=== PATIENT | female | born 1965 | race Caucasian/White ===

== ENCOUNTER 2016-10-04 13:04 | Emergency (ER) | payer OTHER ==
[2016-10-04] MEDS ORDERED: HYDROcodone/APAP 5-325MG 1 EACH TAB PO STA (14:40)
--- NOTE | 2016-10-04 14:54 | ED ---
General Adult HPI - General Chief complaint: Extremity Injury, Upper Stated complaint: Arm swollen Time Seen by Provider: 10/04/16 14:13 Source: patient, RN notes reviewed, old records reviewed Mode of arrival: ambulatory Limitations: no limitations - History of Present Illness Initial comments: Chief complaint history of present illness a 42-year-old female who for the past 7 months been having burning and pain to her right forearm. Patient reports while on the job 7 months ago to her hand and forearm to bang up on a shelf on the job developed acute pain in the right elbow area. She is been following with the orthopod since that time she's had MRIs etc. The patient is on ibuprofen and Mobitz. She returned to work recently and stated that the burning and pain has persisted. She hasn't on-again off-again at home and/or at work. Patient states that she is taking 800 mg 6 times a day. The risk of that plus the moment causing gastritis ulcers and perforation strongly cautioned. Patient has a follow-up appointment in several weeks. In the meanwhile the patient will be given a prescription to get an EMG study . She' ll be placed on [place] to be taken for breakthrough pain and did not take is much ibuprofen as she's been taking. - Related Data Home Medications Medication Instructions Recorded Confirmed Gabapentin [Neurontin] 100 mg PO BID 10/04/16 10/04/16 Ibuprofen [Ibuprofen] 800 mg PO TID PRN 10/04/16 10/04/16 Meloxicam [Meloxicam] 15 mg PO DAILY 10/04/16 10/04/16 buPROPion SR [Wellbutrin SR] 150 mg PO BID 10/04/16 10/04/16 metFORMIN HCL [Metformin HCl] 500 mg PO DAILY 10/04/16 10/04/16 Previous Rx's Medication Instructions Recorded Hydrocodone/Acetaminophen [[place] 1 each PO Q6HR PRN #20 tab 10/04/16 5-325] Allergies Allergy/AdvReac Type Severity Reaction Status Date / Time No Known Allergies Allergy Verified 10/04/16 14:10 Review of Systems ROS Statement: Those systems with pertinent positive or pertinent negative responses have been documented in the HPI. Review of systems no headache or visual acuity changes denies any chest pain shows breath GI/ problems no neuro deficits are burning pain to her right forearm down to her hand. She is in a sling chronically for the past multiple months as well as a pressure gloves includes the fingers up to the midforearm. She states that she has pain and burning regardless whether she is at home or at work. More time during the day is in pain and then not. But it does stop sometimes. Nothing triggers the pain to get worse. All systems reviewed. Past medical problems cervical cancer, asthma, diabetes mellitus treated with by mouth medications. Surgeries include , cholecystectomy. Family history not respiratory. Patient has no known ALLERGIES. She does smoke strongly encouraged to stop denies alcohol use. ROS Other: All systems not noted in ROS Statement are negative. Past Medical History Past Medical History: Asthma, Cancer, Diabetes Mellitus Additional Past Medical History / Comment(s): cervical cancer 20 years ago History of Any Multi-Drug Resistant Organisms: None Reported Past Surgical History: Section, Cholecystectomy Past Anesthesia/Blood Transfusion Reactions: No Reported Reaction Past Psychological History: No Psychological Hx Reported Smoking Status: Current every day smoker Past Alcohol Use History: None Reported Past Drug Use History: None Reported - Past Family History Father Family Medical History: Cancer Additional Family Medical History / Comment(s): prostate General Exam - General Exam Comments Initial Comments: General: The patient is awake and alert, complaining of on again off again burning sensation and pain throbbing type right forearm on again off again for several months. Patient had leave work because of the discomfort. Vital signs shows temperature 98.3 pulse 88 respiratory rate 18 pulse ox 90% room air blood pressure 150/75 Eye: Pupils are equal, round and reactive to light, extra-ocular movements are intact ; there is normal conjunctiva bilaterally. No signs of icterus. Ears, nose, mouth and throat: There are moist mucous membranes Neck: The neck is supple, there is no tenderness , denies neck pain. Cardiovascular: There is a regular rate and rhythm. No murmur, rub or gallop is appreciated. Respiratory: Lungs are clear to auscultation, respirations are non-labored, breath sounds are equal. No wheezes, stridor, rales, or rhonchi. Gastrointestinal: Soft, non-distended, non-tender abdomen without masses or organomegaly noted. There is no rebound or guarding present. No CVA tenderness. Bowel sounds are unremarkable. Back: There is no tenderness to palpation in the midline. There is no obvious deformity. Musculoskeletal: Patient has a right arm and a sling. Also a glove at was pressure on her hand and wrist area. She complains of a burning sensation in the area just distal to the right elbow. Able to open close her fingers touch her fingertips to her thumb tip. . Pulses at palpable radial. Neurological: Patient complains of burning throbbing pain ongoing for multiple months right forearm. Patient is being followed by the orthopod. Today she has not had an EMG study this be requested. Skin: No rash noted. Limitations: no limitations Course Vital Signs 10/04/16 14:05 Temperature 98.3 F Pulse Rate 88 Respiratory 18 Rate Blood Pressure 150/75 O2 Sat by Pulse 98 Oximetry Medical Decision Making - Medical Decision Making Medical decision making at this time the patient is requesting that she not to go to work but she does not want take pain medication on the job. She'll be given Conestoga that she can take over the next several days. Told to decrease the frequency of her ibuprofen and she does take it she should take it with food. Follow-up with orthopedic surgeon and her family doctor. She will also be given a prescription follow-up with on-call neurologist Dr. Juno Chowdary. With an EMG study ordered. Disposition Clinical Impression: Neuropathic pain of right forearm Disposition: HOME SELF-CARE Condition: Stable Instructions: Paresthesia (ED), Arm Pain (ED) Additional Instructions: Take Conestoga as directed. Decreased frequency of urine or ibuprofen to only 3 times daily. Take with food. Prescriptions: Hydrocodone/Acetaminophen [Conestoga 5-325] 1 each PO Q6HR PRN #20 tab PRN Reason: Pain Referrals: Malachi Larios MD [Primary Care Provider] - 1-2 days Time of Disposition: 14:54
[2016-10-04 15:11] VITALS: BP 156/76; PULSE 66; RESP 16; TEMP 98
== END 2016-10-04 15:20 | disposition home or self-care (01) ==
LOC: EC 13:04
DX: M79.2 Neuralgia and neuritis, unspecified (principal); M79.631 Pain in right forearm; M25.521 Pain in right elbow; E11.9 Type 2 diabetes mellitus without complications; F17.200 Nicotine dependence, unspecified, uncomplicated; Z79.899 Other long term (current) drug therapy; Z79.84 Long term (current) use of oral hypoglycemic drugs; Z85.41 Personal history of malignant neoplasm of cervix uteri
CPT/HCPCS: 99283

== ENCOUNTER → 2016-12-04 | Outpatient (CLI) | payer OTHER ==
[2016-12-04 13:55] VITALS: BP 154/86; PULSE 87; RESP 16; TEMP 98.5; BMI 51.1
[2016-12-04 14:18] LABS: EKG EKG PERFORMED
[2016-12-04 14:55] LABS: CHCM 32.7; HDW 2.54; MCH 28.6 pg (25.0-35.0); MCHC 33.3 g/dL (31.0-37.0); MCV 85.7 fL (80.0-100.0); Mean Platelet Volume 8.6; RBC 5.25 m/uL (3.80-5.40); RDW 13.8 % (11.5-15.5); WBC 12.6 k/uL (3.8-10.6)
[2016-12-04 15:10] LABS: ALT 35 U/L (9-52); AST 28 U/L (14-36); Alkaline Phosphatase 95 U/L (38-126); Anion Gap 11 mmol/L; Blood Urea Nitrogen 13 mg/dL (7-17); Calcium 9.3 mg/dL (8.4-10.2); Carbon Dioxide 26 mmol/L (22-30); Chloride 103 mmol/L (98-107); Glucose 221 mg/dL (74-99); Non-African American GFR(MDRD) >60 (>60 ml/min/1.73 sqM); Potassium 4.5 mmol/L (3.5-5.1); Sodium 140 mmol/L (137-145); Total Bilirubin 0.5 mg/dL (0.2-1.3); Total Protein 6.8 g/dL (6.3-8.2)
[2016-12-04 15:58] LABS: Vitamin B12 293 pg/mL (239-931)
--- NOTE | 2016-12-04 16:45 | P.HPBAR ---
Bariatric H&P - History & Physicial H&P Date: 12/04/16 History & Physicial: Visit/CC: sleeve consult Patient initial contact: Initial weight: 136.305 kg Initial weight in pounds: 300.50 Height: 5 ft 4.25 in Initial BMI: 51.1 Last weight: Current weight: 136.305 kg Current weight in pounds: 300.50 Current BMI: 51.1 [place] body weight (based on NIH guidelines): 54.998 kg Excess body weight loss: 0.0% The patient is a 51 year-old F who presents for Bariatric Assessment. The patient presents today for sleeve gastric the consultation. She's had lifetime problems obesity. Past Medical History Past Medical History: Asthma, Cancer, Diabetes Mellitus, Osteoarthritis (OA) Additional Past Medical History / Comment(s): cervical cancer 1993 History of Any Multi-Drug Resistant Organisms: None Reported Past Surgical History: Section, Cholecystectomy Past Anesthesia/Blood Transfusion Reactions: No Reported Reaction Past Psychological History: No Psychological Hx Reported Smoking Status: Current every day smoker Past Alcohol Use History: None Reported Past Drug Use History: None Reported - Past Family History Father Family Medical History: Cancer Additional Family Medical History / Comment(s): prostate Surgical - Exam Vital Signs Temp Pulse Resp BP 98.5 F 87 16 154/86 12/04/16 13:34 12/04/16 13:34 12/04/16 13:34 12/04/16 13:34 - General well developed, no distress - Eyes PERRL - Abdomen Abdomen: soft, non tender Results - Labs 12/04/16 14:12 12/04/16 14:12 Abnormal Lab Results - Last 24 Hours (Table) 12/04/16 12/04/16 Range/Units 14:12 14:12 WBC 12.6 H (3.8-10.6) k/uL Glucose 221 H (74-99) mg/dL Diabetes panel 12/04/16 Range/Units 14:12 Sodium 140 (137-145) mmol/L Potassium 4.5 (3.5-5.1) mmol/L Chloride 103 (98-107) mmol/L Carbon Dioxide 26 (22-30) mmol/L BUN 13 (7-17) mg/dL Creatinine 0.60 (0.52-1.04) mg/dL Glucose 221 H (74-99) mg/dL Calcium 9.3 (8.4-10.2) mg/dL AST 28 (14-36) U/L ALT 35 (9-52) U/L Alkaline Phosphatase 95 (38-126) U/L Total Protein 6.8 (6.3-8.2) g/dL Albumin 3.9 (3.5-5.0) g/dL Calcium panel 12/04/16 Range/Units 14:12 Calcium 9.3 (8.4-10.2) mg/dL Albumin 3.9 (3.5-5.0) g/dL Pituitary panel 12/04/16 Range/Units 14:12 Sodium 140 (137-145) mmol/L Potassium 4.5 (3.5-5.1) mmol/L Chloride 103 (98-107) mmol/L Carbon Dioxide 26 (22-30) mmol/L BUN 13 (7-17) mg/dL Creatinine 0.60 (0.52-1.04) mg/dL Glucose 221 H (74-99) mg/dL Calcium 9.3 (8.4-10.2) mg/dL Adrenal panel 12/04/16 Range/Units 14:12 Sodium 140 (137-145) mmol/L Potassium 4.5 (3.5-5.1) mmol/L Chloride 103 (98-107) mmol/L Carbon Dioxide 26 (22-30) mmol/L BUN 13 (7-17) mg/dL Creatinine 0.60 (0.52-1.04) mg/dL Glucose 221 H (74-99) mg/dL Calcium 9.3 (8.4-10.2) mg/dL Total Bilirubin 0.5 (0.2-1.3) mg/dL AST 28 (14-36) U/L ALT 35 (9-52) U/L Alkaline Phosphatase 95 (38-126) U/L Total Protein 6.8 (6.3-8.2) g/dL Albumin 3.9 (3.5-5.0) g/dL Bariatric Assessment & Plan Plan: RBC. Patient's BMI is 51. She will obtain insurance authorization. We went over the risks and benefits of sleeve gastrectomy discussed with the risk of gastric staple line disruption. Patient will follow-up in one month. Bariatric Checklist Checklist: Plan: Checklist: EGD: 1. Hiatal hernia: 2. H. Pylori: HgbA1c: Vitamin D: Smoking: Current every day smoker Primary care physician referral: Malachi tyson Psychiatry clearance: Cardiology clearance: Sleep study: Diet journal: VTE risk score: VTE risk level: Rehab needs at discharge:
[2016-12-04 23:08] LABS: Hemoglobin A1C 8.4 % (4.2-6.1)
== END | disposition home or self-care (01) ==
LOC: BARWHC3 13:03
PROVIDERS: ATTEND Surgery
DX: Z01.818 Encounter for other preprocedural examination (principal); J45.909 Unspecified asthma, uncomplicated; E11.9 Type 2 diabetes mellitus without complications; F17.200 Nicotine dependence, unspecified, uncomplicated
CPT/HCPCS: 80053; 82607; 83036; 85027; 82306; 93005; 36415; G0463; 99211

== ENCOUNTER 2016-12-28 10:50 | Emergency (ER) | payer OTHER ==
[2016-12-28 10:54] VITALS: BP 180/95; PULSE 91; RESP 17; TEMP 97.7
[2016-12-28] MEDS ORDERED: DIPH,PERTUS(ACELL)TETVAC-LF 0.5 ML VIAL IM ONE (11:09)
[2016-12-28] MEDS ORDERED: GELATIN SPONGE,ABSORB (SMALL) 1 EACH SPONGE TOPICAL STA (11:09)
--- NOTE | 2016-12-28 11:27 | ED ---
General Adult HPI - General Chief complaint: Wound/Laceration Stated complaint: Finger lac Time Seen by Provider: 12/28/16 10:59 Source: patient, RN notes reviewed Mode of arrival: ambulatory Limitations: no limitations - History of Present Illness Initial comments: 51 yo female presents to the ER with cc of left pinky finger laceration. Patient states she was cutting intact; her finger. Patient does not recall her last tetanus. Patient denies any other injuries from the incident. Patient states she noticed some bleeding so she was concerned. Patient states that touching the area causes pain she does not complaining of any pain to the rest of the digit. She denies any changes in range of motion. Patient denies any recent fever, chills, shortness of breath, chest pain, back pain, abdominal pain , nausea vomiting, numbness or tingling, dysuria or hematuria, constipation or diarrhea, headaches or visual changes, or any other current symptoms. - Related Data Home Medications Medication Instructions Recorded Confirmed Gabapentin [Neurontin] 100 mg PO BID 10/04/16 12/28/16 Ibuprofen [Ibuprofen] 800 mg PO TID PRN 10/04/16 12/28/16 buPROPion SR [Wellbutrin SR] 150 mg PO BID 10/04/16 12/28/16 metFORMIN HCL [Metformin HCl] 500 mg PO DAILY 10/04/16 12/28/16 Meloxicam 7.5 mg PO DAILY 12/28/16 12/28/16 Allergies Allergy/AdvReac Type Severity Reaction Status Date / Time latex Allergy Rash/Hives Verified 12/28/16 11:16 Review of Systems ROS Statement: Those systems with pertinent positive or pertinent negative responses have been documented in the HPI. ROS Other: All systems not noted in ROS Statement are negative. Past Medical History Past Medical History: Asthma, Cancer, Diabetes Mellitus, Osteoarthritis (OA) Additional Past Medical History / Comment(s): cervical cancer 1993 History of Any Multi-Drug Resistant Organisms: None Reported Past Surgical History: Section, Cholecystectomy Past Anesthesia/Blood Transfusion Reactions: No Reported Reaction Past Psychological History: No Psychological Hx Reported Smoking Status: Current every day smoker Past Alcohol Use History: None Reported Past Drug Use History: None Reported - Past Family History Father Family Medical History: Cancer Additional Family Medical History / Comment(s): prostate General Exam - General Exam Comments Initial Comments: General: The patient is awake and alert, in no distress, and does not appear acutely ill. Neck: The neck is supple, there is no tenderness. Cardiovascular: There is a regular rate and rhythm. No murmur, rub or gallop is appreciated. Respiratory: Lungs are clear to auscultation, respirations are non-labored, breath sounds are equal. No wheezes, stridor, rales, or rhonchi. Musculoskeletal: Sensation intact with 2+ pulses. Her strength. Full range motion of the right wrist and right hand. Patient does appear to have an abrasion/skin avulsion to the DIP and middle phalanx on the right pinky finger. Neurological: CN II-XII intact, There are no obvious motor or sensory deficits. Coordination appears grossly intact. Speech is normal. Skin: Skin is warm and dry and no rashes or lesions are noted. Psychiatric: Normal mood and affect. Limitations: no limitations Course Vital Signs 12/28/16 10:52 Temperature 97.7 F Pulse Rate 91 Respiratory 17 Rate Blood Pressure 180/95 O2 Sat by Pulse 98 Oximetry Procedures - Procedures Initial comment: The area pain scale Was cleaned and prepped. Patient with Gelfoam placement in the finger was bandaged. Medical Decision Making - Medical Decision Making 51-year-old female presents emergency department with a chief complaint of right pinky finger skin avulsion. This time we discussed care follow-up and return parameters all questions. Patient stated that she understood and she is. This plan. This time she will be discharged home. - Radiology Data Radiology results: image reviewed Disposition Clinical Impression: Abrasion of right little finger, initial encounter Disposition: HOME SELF-CARE Condition: Stable Instructions: Abrasion (ED) Additional Instructions: Please use medication as discussed. Please follow up with family doctor if symptoms have not improved over the next two days. Please return to the emergency room if your symptoms increase or worsen or for any other concerns. Referrals: Malachi Larios MD [Primary Care Provider] - 1-2 days Time of Disposition: 11:27
== END 2016-12-28 11:49 | disposition home or self-care (01) ==
LOC: EC 10:50
DX: S60.416A Abrasion of right little finger, initial encounter (principal); E11.9 Type 2 diabetes mellitus without complications; M19.90 Unspecified osteoarthritis, unspecified site; F17.200 Nicotine dependence, unspecified, uncomplicated; Z23 Encounter for immunization; Z85.41 Personal history of malignant neoplasm of cervix uteri; Z91.040 Latex allergy status; Z79.1 Long term (current) use of non-steroidal anti-inflammatories (NSAID); Z79.84 Long term (current) use of oral hypoglycemic drugs; Z79.899 Other long term (current) drug therapy; W26.8XXA Contact with other sharp object(s), not elsewhere classified, initial encounter
CPT/HCPCS: 90471; 90715; 99282

== ENCOUNTER 2017-01-01 07:28 | Day surgery (SDC) | payer OTHER ==
[2016-12-28 14:39] VITALS: BMI 55.2
[~2017-01-01 07:28] MED LIST: LACTATED RINGERS 1,000 ML IV SCH; LIDOCAINE 1% 20 ML VIAL (10MG/ML) FOR IV START INTRADERMA PRN
[2017-01-01 07:48] VITALS: TEMP 96.9
[2017-01-01 07:57] LABS: Glucose,Whole Blood 170 mg/dL (75-99)
[2017-01-01] MEDS ORDERED: PROPOFOL 10 MG/ML 20 ML VIAL IV ONE (08:39)
[2017-01-01] MEDS ORDERED: KETAMINE 10 MG/ML 20 ML VIAL ONE (08:39)
[2017-01-01] MEDS ORDERED: LIDOCAINE 1% INJ 10MG/ML (20 ML MDV) ONE (08:39)
[2017-01-01] MEDS ORDERED: fentaNYL (PF) 50 MCG/ML 2 ML AMP ONE (08:39)
[2017-01-01] MEDS ORDERED: MIDAZOLAM 2 MG/2 ML VIAL ONE (08:39)
[2017-01-01] MEDS ORDERED: GLYCOPYRROLATE 0.2 MG/ML 2 ML VIAL ONE (08:39)
--- NOTE | 2017-01-01 08:57 | P.GSHP ---
History of Present Illness H&P Date: 01/01/17 Chief Complaint: GERD, morbid obesity This a 51-year-old female who presents today for EGD. She's going workup for gastric sleeve surgery. Patient's had issues with GERD. Her BMI is 55. Past Medical History Past Medical History: Asthma, Cancer, Diabetes Mellitus, Osteoarthritis (OA) Additional Past Medical History / Comment(s): cervical cancer 1993 History of Any Multi-Drug Resistant Organisms: None Reported Past Surgical History: Section, Cholecystectomy Additional Past Surgical History / Comment(s): CONE BIOPSY Past Anesthesia/Blood Transfusion Reactions: No Reported Reaction Smoking Status: Current every day smoker - Past Family History Father Family Medical History: Cancer Additional Family Medical History / Comment(s): prostate Medications and Allergies Home Medications Medication Instructions Recorded Confirmed Type Gabapentin [Neurontin] 100 mg PO BID PRN 10/04/16 01/01/17 History Ibuprofen [Ibuprofen] 800 mg PO TID PRN 10/04/16 01/01/17 History buPROPion SR [Wellbutrin SR] 150 mg PO BID 10/04/16 01/01/17 History metFORMIN HCL [Metformin HCl] 500 mg PO BID 10/04/16 01/01/17 History Meloxicam 7.5 mg PO DAILY 12/28/16 01/01/17 History Allergies Allergy/AdvReac Type Severity Reaction Status Date / Time latex Allergy Rash/Hives Verified 01/01/17 07:48 Surgical - Exam Vital Signs Temp Pulse Resp BP Pulse Ox 96.9 F L 90 16 120/79 95 01/01/17 07:47 01/01/17 07:47 01/01/17 07:47 01/01/17 07:47 01/01/17 07:47 - General well developed, no distress - Eyes PERRL - ENT normal pinna - Neck no masses - Respiratory normal expansion - Cardiovascular Rhythm: regular - Abdomen Abdomen: soft, non tender Results - Labs Abnormal Lab Results - Last 24 Hours (Table) 01/01/17 Range/Units 07:56 POC Glucose (mg/dL) 170 H (75-99) mg/dL Assessment and Plan Plan: . Morbid obesity. We'll perform EGD.
--- NOTE | 2017-01-01 09:03 | P.OP ---
Date of Procedure: 01/01/17 Preoperative Diagnosis: GERD Morbid obesity Postoperative Diagnosis: Antral gastritis No evidence of hiatal hernia Procedure(s) Performed: EGD Implants: Anesthesia: MAC Surgeon: Alvin Beltrán Pathology: other (Antrum) Condition: stable Disposition: PACU Indications for Procedure: Operative Findings: Description of Procedure: The patient's placed on the endoscopy table in the lateral position. She received IV sedation. The gastroscope placed oropharynx passed in the esophagus and into the stomach. Scope was then placed through the pylorus. The first and second portion of the duodenum appeared normal. Scope was then brought back the antrum and this appeared mildly inflamed. A biopsies performed. The scope was then retroflexed and the remainder stomach appeared normal. There is no evidence of a hiatal hernia. The GE junction was at 47 is. The distal esophagus appeared normal. The proximal esophagusAppeared Normal. Scope was withdrawn for patient.
[2017-01-01 09:16] VITALS: RESP 20
[2017-01-01 09:26] LABS: Glucose,Whole Blood 167 mg/dL (75-99)
[2017-01-01] MEDS ORDERED: ALBUTEROL NEBULIZED 2.5 MG/3 ML INHALATION STA (09:26)
[2017-01-01 09:40] VITALS: PULSE 95
[2017-01-01 09:43] VITALS: BP 113/74
== END 2017-01-01 09:57 | disposition home or self-care (01) ==
LOC: ORWHC2ENDO 07:28
PROVIDERS: ATTEND Surgery
DX: K29.50 Unspecified chronic gastritis without bleeding (principal); K21.9 Gastro-esophageal reflux disease without esophagitis; E66.01 Morbid (severe) obesity due to excess calories; Z68.43 Body mass index [BMI] 50.0-59.9, adult; J45.909 Unspecified asthma, uncomplicated; E11.9 Type 2 diabetes mellitus without complications; M19.90 Unspecified osteoarthritis, unspecified site; F39 Unspecified mood [affective] disorder; Z85.41 Personal history of malignant neoplasm of cervix uteri; F17.200 Nicotine dependence, unspecified, uncomplicated; Z79.84 Long term (current) use of oral hypoglycemic drugs; Z79.899 Other long term (current) drug therapy; Z91.040 Latex allergy status
CPT/HCPCS: 94640; 81025; 88305; 88342; 43239; J2250; J2001; J3010; J2704

== ENCOUNTER → 2017-01-15 | Outpatient (CLI) | payer OTHER ==
--- NOTE | 2017-01-15 16:46 | P.HPBAR ---
Bariatric H&P - History & Physicial H&P Date: 01/15/17 History & Physicial: Visit/CC: Patient initial contact: Initial weight: 136.305 kg Initial weight in pounds: Height: Initial BMI: Last weight: Current weight: Current weight in pounds: Current BMI: [place] body weight (based on NIH guidelines): Excess body weight loss: The patient is a 51 year-old F who presents for Bariatric Assessment. She presents today for sleeve gastric consultation. She is scheduled to have her psychiatric consultation performed later this week. She is scheduled see Dr. Malachi Brown for a letter of medical necessity. She's completed her 6 months of dietary diuresis. Past Medical History Past Medical History: Asthma, Cancer, Diabetes Mellitus, Osteoarthritis (OA) Additional Past Medical History / Comment(s): cervical cancer 1994 History of Any Multi-Drug Resistant Organisms: None Reported Past Surgical History: Section, Cholecystectomy Past Anesthesia/Blood Transfusion Reactions: No Reported Reaction Smoking Status: Current every day smoker - Past Family History Father Family Medical History: Cancer Additional Family Medical History / Comment(s): prostate Surgical - Exam - General well developed, no distress - Eyes PERRL - ENT normal pinna - Neck no masses - Abdomen Abdomen: soft, non tender Bariatric Assessment & Plan Plan: The patient will be scheduled for her sleeve gastrectomy when she obtains insurance authorization. Patient's multiple comorbidities related to morbid obesity. She'll follow-up in one month. Bariatric Checklist Checklist: Plan: Checklist: EGD: 1. Hiatal hernia: 2. H. Pylori: HgbA1c: Vitamin D: Smoking: Current every day smoker Primary care physician referral: Malachi tyson Psychiatry clearance: Cardiology clearance: Sleep study: Diet journal: VTE risk score: VTE risk level: Rehab needs at discharge:
[2017-01-15 16:57] VITALS: BP 180/77; PULSE 97; RESP 15; TEMP 97.6; BMI 51.0
[2017-01-15 17:31] LABS: CHCM 33.9; HCT 44.6 % (34.0-46.0); HDW 2.74; MCH 28.9 pg (25.0-35.0); MCHC 33.7 g/dL (31.0-37.0); Mean Platelet Volume 9.1; RBC 5.18 m/uL (3.80-5.40); RDW 14.7 % (11.5-15.5); WBC 12.8 k/uL (3.8-10.6)
[2017-01-15 17:40] LABS: ALT 29 U/L (9-52); AST 29 U/L (14-36); Alkaline Phosphatase 112 U/L (38-126); Anion Gap 9 mmol/L; Blood Urea Nitrogen 13 mg/dL (7-17); Calcium 9.6 mg/dL (8.4-10.2); Carbon Dioxide 26 mmol/L (22-30); Chloride 104 mmol/L (98-107); Glucose 191 mg/dL (74-99); Non-African American GFR(MDRD) >60 (>60 ml/min/1.73 sqM); Potassium 4.4 mmol/L (3.5-5.1); Sodium 139 mmol/L (137-145); Total Bilirubin 0.5 mg/dL (0.2-1.3); Total Protein 6.7 g/dL (6.3-8.2)
[2017-01-15 17:49] LABS: Total Iron Binding Capacity 391 ug/dL (265-497)
[2017-01-15 18:28] LABS: Vitamin B12 280 pg/mL (239-931)
[2017-01-15 18:41] LABS: Hemoglobin A1C 8.4 % (4.2-6.1)
== END ==
LOC: BARWHC3 15:33
PROVIDERS: ATTEND Surgery
DX: Z48.815 Encounter for surgical aftercare following surgery on the digestive system (principal); Z98.84 Bariatric surgery status; E66.01 Morbid (severe) obesity due to excess calories; F17.200 Nicotine dependence, unspecified, uncomplicated; E44.0 Moderate protein-calorie malnutrition; E55.9 Vitamin D deficiency, unspecified
CPT/HCPCS: 80053; 82607; 83036; 83550; 84443; 85027; 82306; G0463; 99211

== ENCOUNTER → 2017-03-19 | Outpatient (CLI) | payer OTHER ==
[2017-03-19 15:26] VITALS: BMI 49.6
== END | disposition home or self-care (01) ==
LOC: BARWHC3 08:20
PROVIDERS: ATTEND Surgery
DX: E66.01 Morbid (severe) obesity due to excess calories (principal)
CPT/HCPCS: 83013; 97804

== ENCOUNTER → 2017-05-28 | Outpatient (CLI) | payer OTHER ==
[2017-05-28 14:05] VITALS: BP 166/85; PULSE 97; RESP 16; TEMP 98.4; BMI 47.5
--- NOTE | 2017-05-28 16:27 | P.HPBAR ---
Bariatric H&P - History & Physicial H&P Date: 05/28/17 History & Physicial: Visit/CC: Pre-surg Patient initial contact: Initial weight: 136.305 kg Initial weight in pounds: 300.50 Height: 5 ft 4.25 in Initial BMI: 51.1 Last weight: Current weight: 126.722 kg Current weight in pounds: 279.00 Current BMI: 47.5 [place] body weight (based on NIH guidelines): 54.998 kg Excess body weight loss: 11.9% The patient is a 51 year-old F who presents for Bariatric Assessment. Patient presents today for preoperative sleeve gastrectomy follow-up. She is tender scheduled for surgery next month. We went over the risks and benefits of the procedure. I discussed with her the risk of possible gastric staple line disruption, bleeding and scarring. I've also discussed with the risks of smoking in the perioperative time frame. I also discussed with patient that her risks of some perforation is significantly elevated with smoking. Past Medical History Past Medical History: Asthma, Cancer, Diabetes Mellitus, Osteoarthritis (OA) Additional Past Medical History / Comment(s): cervical cancer 1994 History of Any Multi-Drug Resistant Organisms: None Reported Past Surgical History: Section, Cholecystectomy Past Anesthesia/Blood Transfusion Reactions: No Reported Reaction Past Psychological History: No Psychological Hx Reported Smoking Status: Current every day smoker Past Alcohol Use History: None Reported Past Drug Use History: None Reported - Past Family History Father Family Medical History: Cancer Additional Family Medical History / Comment(s): prostate Surgical - Exam Vital Signs Temp Pulse Resp BP 98.4 F 97 16 166/85 05/28/17 14:02 05/28/17 14:02 05/28/17 14:02 05/28/17 14:02 - General well developed - Eyes PERRL - ENT normal pinna - Neck no masses - Respiratory normal expansion - Cardiovascular Rhythm: regular - Abdomen Abdomen: soft, non tender Bariatric Assessment & Plan Plan: RBC with BMI of 47. Patient will be scheduled for sleeve gastrectomy next month. Patient is a good understanding of the risks and complications of the surgery. Bariatric Checklist Checklist: Plan: Checklist: EGD: 1. Hiatal hernia: 2. H. Pylori: HgbA1c: Vitamin D: Smoking: Current every day smoker Primary care physician referral: Malachi tyson Psychiatry clearance: Cardiology clearance: Sleep study: Diet journal: VTE risk score: VTE risk level: Rehab needs at discharge:
== END | disposition home or self-care (01) ==
LOC: BARWHC3 13:35
PROVIDERS: ATTEND Surgery
DX: Z01.818 Encounter for other preprocedural examination (principal); F17.200 Nicotine dependence, unspecified, uncomplicated
CPT/HCPCS: 99211

== ENCOUNTER 2017-06-27 08:30 | Inpatient (IN) | payer OTHER ==
[2017-07-23] MEDS ORDERED: ONDANSETRON 4 MG/2 ML VIAL IVP ONE (05:00)
[2017-07-23] MEDS ORDERED: ENOXAPARIN 40 MG/0.4 ML SYRINGE SQ ONE (05:00)
[2017-07-23] MEDS ORDERED: ACETAMINOPHEN TAB 500 MG TAB PO ONE (05:00)
[2017-07-23] MEDS ORDERED: fentaNYL (PF) 50 MCG/ML 2 ML AMP IV PRN (05:27)
[2017-07-23] MEDS ORDERED: MIDAZOLAM 2 MG/2 ML VIAL IV PRN (05:27)
[2017-07-23] MEDS ORDERED: DEXAMETHASONE SOD PHOSPHATE 10 MG/ML 1 ML VIAL IV ONE (05:27)
[2017-07-23] MEDS ORDERED: SCOPOLAMINE 1.5MG/72HR PATCH TRANSDERM ONE (05:27)
[2017-07-23 07:10] LABS: Glucose,Whole Blood 125 mg/dL (75-99)
[2017-07-23] MEDS: LACTATED RINGERS 1,000 ML IV SCH (07:10)
[2017-07-23] MEDS ORDERED: LIDOCAINE 1% 20 ML VIAL (10MG/ML) FOR IV START INTRADERMA ONE (07:19)
--- NOTE | 2017-07-23 07:23 | P.GSHP ---
History of Present Illness H&P Date: 07/23/17 Chief Complaint: Morbid obesity This is a 51-year-old female who's had lifetime problems obesity. The patient has severe comorbidities related to morbid obesity. Patient presents today for laparoscopic sleeve gastrectomy. Patient is well educated of the procedure sleeve yesterday. She is aware the risks of surgery including gastric staple line disruption, scarring or bleeding. - Constitutional Constitutional: Reports as per HPI Past Medical History Past Medical History: Asthma, Cancer, Diabetes Mellitus, Osteoarthritis (OA) Additional Past Medical History / Comment(s): cervical cancer 1993 History of Any Multi-Drug Resistant Organisms: None Reported Past Surgical History: Section, Cholecystectomy, Orthopedic Surgery Additional Past Surgical History / Comment(s): Right arm surgery. Past Anesthesia/Blood Transfusion Reactions: No Reported Reaction Past Psychological History: No Psychological Hx Reported Smoking Status: Current every day smoker Past Alcohol Use History: None Reported Additional Past Alcohol Use History / Comment(s): down to 3 cigarettes per day, has been smoking since 15 yrs old, 2PPD Past Drug Use History: None Reported - Past Family History Father Family Medical History: Cancer, Diabetes Mellitus Additional Family Medical History / Comment(s): prostate Medications and Allergies Home Medications Medication Instructions Recorded Confirmed Type metFORMIN HCL [Metformin HCl] 500 mg PO BID 10/04/16 07/23/17 History Meloxicam [Mobic] 7.5 mg PO DAILY 07/13/17 07/13/17 History Allergies Allergy/AdvReac Type Severity Reaction Status Date / Time latex Allergy Rash/Hives Verified 07/13/17 14:44 pickles Allergy Swelling Uncoded 07/13/17 15:18 Surgical - Exam Vital Signs Temp Pulse Resp BP Pulse Ox 97.5 F L 80 16 135/83 95 07/23/17 06:53 07/23/17 06:53 07/23/17 06:53 07/23/17 06:53 07/23/17 06:53 Body mass index 54 - General well developed, no distress - Eyes PERRL - ENT normal pinna - Neck no masses - Respiratory normal expansion - Cardiovascular Rhythm: regular - Abdomen Abdomen: soft, non tender Results - Labs Abnormal Lab Results - Last 24 Hours (Table) 07/23/17 Range/Units 07:03 POC Glucose (mg/dL) 125 H (75-99) mg/dL Assessment and Plan Assessment: Morbid obesity with BMI 54. Patient will undergo laparoscopic sleeve gastrectomy.
[2017-07-23] MEDS ORDERED: NEOSTIGMINE 1 MG/ML 10 ML VIAL ONE (08:48)
[2017-07-23] MEDS ORDERED: SUCCINYLCHOLINE CHLORIDE 100 MG/5 ML SYR IV ONE (08:48)
[2017-07-23] MEDS ORDERED: ROCURONIUM BROMIDE 10 MG/ML 10 ML VIAL IV ONE (08:48)
[2017-07-23] MEDS ORDERED: KETOROLAC 30 MG/ML 1 ML VIAL ONE (08:48)
[2017-07-23] MEDS ORDERED: MIDAZOLAM 2 MG/2 ML VIAL ONE (08:48)
[2017-07-23] MEDS ORDERED: PROPOFOL 10 MG/ML 20 ML VIAL IV ONE (08:48)
[2017-07-23] MEDS ORDERED: MORPHINE SULFATE 10 MG/ML SYRINGE ONE (08:48)
[2017-07-23] MEDS ORDERED: fentaNYL (PF) 50 MCG/ML 2 ML AMP ONE (08:48)
[2017-07-23] MEDS ORDERED: GLYCOPYRROLATE 0.2 MG/ML 2 ML VIAL ONE (08:48)
[2017-07-23] MEDS ORDERED: BUPIVACAINE (PF) 0.25% 30 ML VIAL SQ ONE (09:12)
[2017-07-23] MEDS ORDERED: LACTATED RINGERS 1,000 ML IV ONE (09:42)
[2017-07-23 10:23] LABS: Glucose,Whole Blood 243 mg/dL (75-99)
[2017-07-23] MEDS ORDERED: MORPHINE SULFATE/PF 10MG/10ML VL IVP PRN (10:29)
[2017-07-23] MEDS ORDERED: NALOXONE 0.4 MG/ML 1 ML VIAL IV PRN (10:29)
--- NOTE | 2017-07-23 10:35 | P.OP ---
Date of Procedure: 07/23/17 Preoperative Diagnosis: Morbid obesity Postoperative Diagnosis: Morbid obesity Procedure(s) Performed: Laparoscopic sleeve gastrectomy Anesthesia: FER Surgeon: Alvin Beltrán Estimated Blood Loss (ml): 5 Pathology: other (Gastric remnant) Condition: stable Disposition: PACU Description of Procedure: The patient was placed on the operating room table in the supine position. She received general anesthesia and then was placed in dorsal lithotomy position. Her abdomen was prepped and draped in sterile fashion. The skin incision sites were anesthetized 1% local Xylocaine. And then the skin was incised with an 11 blade in the left lateral position. Using a blade less trocar under direct visualization the peritoneal cavity was entered. The abdomen was insufflated and then a 5 mm laparoscope was placed into the peritoneal cavity. A 5 mm trocar was placed in the right epigastric, and right lateral position. A 15 mm trocar was placed in the supra-umbilical position and another 5 mm trocar was placed in the left lateral position. The left lateral lobe of the liver was retracted. The stomach was visualized. The greater curvature of the stomach was then dissected using the Harmonic scissors. The dissection occurred approximately 5 cm from the pylorus to the level of the left kingsley. There was no hiatal hernia seen. At this point a 40-Mauritanian bougie dilator was placed the oropharynx and passed into the esophagus and into the stomach by the AWNING HANGER HELPER. The sleeve gastrectomy was performed by using the powered echelon stapler with a seam guard buttress material. Sequential firings of the stapler were performed. The gastric remnant was then brought out through the 15 mm trocar site. The dilator was withdrawn. And a orogastric tube was replaced into the stomach. The stomach was insufflated with 200 mL of methylene blue normal saline. There was no evidence of extravasation. The abdomen was irrigated there is no bleeding seen. The Jama-Richelle device was used to close the 15 mm trocar with 0 Vicryl. Skin was closed with interrupted 3-0 Monocryl sutures once the trochars withdrawn. Dermabond dressing was applied. Patient was sent to recovery in stable condition.
[2017-07-23] MEDS ORDERED: fentaNYL (PF) 50 MCG/ML 2 ML AMP IV ONE ×2 (10:40→10:50)
[2017-07-23] MEDS ORDERED: LABETALOL 5 MG/ML VIAL MDV IVP ONE ×2 (10:42→10:49)
[2017-07-23] MEDS ORDERED: hydrALAZINE HCL 20 MG/ML 1 ML VIAL IVP ONE (11:07)
[2017-07-23 12:23] LABS: Glucose,Whole Blood 200 mg/dL (75-99)
[2017-07-23] MEDS: KETOROLAC 30 MG/ML 1 ML VIAL IVP SCH ×3 (13:51→23:14)
[2017-07-23] MEDS: 0.9% NACL WITH KCL 20 MEQ/L 1,000 ML IV SCH ×2 (13:52→19:41)
[2017-07-23] MEDS: AMPICILLIN-SULBACTAM 3 GM in SODIUM CHLORIDE 0.9% 100 ML IVPB SCH ×2 (13:53→18:37)
[2017-07-23] MEDS: INSULIN ASPART 100 UNIT/ML 1 ML 10 ML VIAL SQ SCH ×3 (13:57→19:56)
[2017-07-23] MEDS: ALBUTEROL NEBULIZED 2.5 MG/3 ML INHALATION SCH ×3 (14:02→21:19)
[2017-07-23 17:15] LABS: Glucose,Whole Blood 152 mg/dL (75-99)
[2017-07-23] MEDS: ONDANSETRON 4 MG/2 ML VIAL IVP PRN ×2 (18:39→22:08)
[2017-07-23 19:51] LABS: Glucose,Whole Blood 161 mg/dL (75-99)
[2017-07-24] MEDS: 0.9% NACL WITH KCL 20 MEQ/L 1,000 ML IV SCH ×2 (01:00→15:37)
[2017-07-24] MEDS: LACTATED RINGERS 1,000 ML IV SCH (01:01)
[2017-07-24] MEDS: KETOROLAC 30 MG/ML 1 ML VIAL IVP SCH ×4 (02:26→18:40)
[2017-07-24] MEDS: SIMETHICONE 40 MG/0.6 ML DROPS 2,000 MG/30 ML BOTTLE PO PRN ×3 (02:41→18:41)
[2017-07-24] MEDS: HYOSCYAMINE ORAL DROPS 1.875 MG/15 ML BOTTLE PO PRN ×2 (02:42→18:41)
[2017-07-24 06:44] LABS: Glucose,Whole Blood 123 mg/dL (75-99)
--- NOTE | 2017-07-24 06:53 | CONS ---
CONSULTATION CHIEF COMPLAINT: This is a 51-year-old white female who presents gastric sleeve for medical management. HISTORY OF PRESENT ILLNESS: 51-year-old white female, status post gastric sleeve, history diabetes mellitus on metformin, hypertension, status post gastric sleeve today for weight loss due to morbid obesity. REVIEW OF SYSTEMS: 14-point review of systems negative except for mentioned in HPI. PHYSICAL EXAM: VITAL SIGNS: Stable. ENDOCRINE: BMI is over 50. CARDIOVASCULAR: S1, S2. LUNGS: Clear. GI: Soft. HEMATOLOGY: Negative Homans. INTEGUMENT: No rash, excoriations, bruises. PSYCH: Fair mood and affect. NEUROLOGIC: Alert and oriented x3. ASSESSMENT: 1. Status post gastric sleeve. 2. Diabetes mellitus. 3. Hypertension. Continue with Accu-Cheks protocols. Home medications will be reordered if necessary for diabetes. Otherwise, please see further orders. MMODL / IJN: [id number] /
[2017-07-24 06:54] LABS: Basophils % (A) 0 %; Eosinophils # (A) 0.1 k/uL (0-0.7); Eosinophils % (A) 1 %; HCT 42.8 % (34.0-46.0); HGB 14.4 gm/dL (11.4-16.0); Lymphocytes # (A) 1.9 k/uL (1.0-4.8); Lymphocytes % (A) 12 %; MCHC 33.7 g/dL (31.0-37.0); Mean Platelet Volume 8.9; Monocytes # (A) 0.9 k/uL (0-1.0); Monocytes % (A) 6 %; Neutrophils # (A) 13.2 k/uL (1.3-7.7); Neutrophils % (A) 81 %; Platelet Count 283 k/uL (150-450); RBC 5.16 m/uL (3.80-5.40); RDW 13.6 % (11.5-15.5); WBC 16.3 k/uL (3.8-10.6)
[2017-07-24 07:04] LABS: Anion Gap 7 mmol/L; Blood Urea Nitrogen 19 mg/dL (7-17); Calcium 9.3 mg/dL (8.4-10.2); Carbon Dioxide 25 mmol/L (22-30); Chloride 106 mmol/L (98-107); Magnesium 1.8 mg/dL (1.6-2.3); Potassium 4.3 mmol/L (3.5-5.1); Sodium 138 mmol/L (137-145)
[2017-07-24] MEDS: INSULIN ASPART 100 UNIT/ML 1 ML 10 ML VIAL SQ SCH ×4 (08:19→21:52)
[2017-07-24] MEDS: ALBUTEROL NEBULIZED 2.5 MG/3 ML INHALATION SCH ×4 (08:37→21:51)
[2017-07-24] MEDS: PANTOPRAZOLE 40 MG/10 ML VIAL IV SCH (08:38)
[2017-07-24] MEDS: ENOXAPARIN 40 MG/0.4 ML SYRINGE SQ SCH ×2 (08:39→22:13)
--- NOTE | 2017-07-24 10:37 | FL ---
EXAMINATION TYPE: FL UGI DATE OF EXAM: 07/24/2017 LIMITED UGI: CLINICAL HISTORY: Morbid Obesity, gastric sleeve yesterday. TECHNIQUE: Limited esophagram is performed utilizing 30 oz of Omnipaque 350. A total of 2.11 minutes of fluoroscopic time was utilized during procedure. COMPARISON: None. FINDINGS: Patient had nausea with some hemoptysis prior to presentation. The patient had difficulty s wallowing contrast . Persistent nausea with one episode of hemoptysis was observed. Esophageal perist alsis and motility are satisfactory. There is good flow of contrast along the diaphragmatic hiatus i nto proximal stomach. There is mild delay in flow of contrast at proximal anastomosis into gastric sl eeve. There is mild delay of contrast at distal anastomosis with slightly more focal prominence in th e distal sleeve. There is eventual flow into remnant antrum and duodenal sweep. There is no definitiv e evidence of contrast extravasation to suggest leak. Cholecystectomy clips are observed. IMPRESSION: Suboptimal study without convincing evidence of leak or significant focal obstruction. If symptoms persist consider repeat evaluation.
[2017-07-24 11:22] LABS: Glucose,Whole Blood 131 mg/dL (75-99)
[2017-07-24 11:45] LABS: Hemoglobin A1C 6.5 % (4.0-6.0)
--- NOTE | 2017-07-24 13:04 | P.DS ---
Providers Date of admission: 07/23/17 06:04 Expected date of discharge: 07/24/17 Attending physician: Alvin Guajardo Consults: 07/23/17 10:29 Consult Physician Routine Consulting Provider: Malachi Larios Consult Reason/Comments: Medical management Do you want consulting provider notified?: Yes Primary care physician: Stated None Hospital Course: 51-year-old presented on elective basis to undergo laparoscopic sleeve gastrectomy for morbid obesity BMI 48 patient has had a lifelong problem with obesity. There were several comorbidities related to her morbid obesity 23 of July patient underwent laparoscopic sleeve gastrectomy for morbid obesity Patient underwent a upper GI on the the results were reviewed by Dr. guajardo. There are showed no convincing evidence of a leak or significant focal obstruction Additionally patient was seen by the bariatric team postop.. Patient is adamant that she had no abdominal pain and was asking for no pain medication. Impression discharge diagnosis Morbid obesity BMI 48.6 History of osteoarthritis Postop July 23 laparoscopic sleeve gastrectomy Type 2 diabetes on metformin Hypertension The above impression and plan of care have been discussed and directed by signing physician. Tahira Chase nurse practitioner acting as scribe for signing physician. Plan - Discharge Summary Discharge Rx Participant: Yes New Discharge Prescriptions: New Lisinopril [Prinivil] 20 mg PO DAILY #30 tablet Bisacodyl [Dulcolax] 5 mg PO DAILY PRN #10 tablet.dr RIOS Reason: Constipation Ondansetron Odt [Zofran Odt] 4 mg PO Q8HR PRN #9 tab PRN Reason: Nausea Simethicone 40 mg/0.6 ml Drops [Mylicon Drops] 40 mg PO HS PRN #30 ml PRN Reason: Gas Continue metFORMIN HCL [Metformin HCl] 500 mg PO BID Meloxicam [Mobic] 7.5 mg PO DAILY Discharge Medication List metFORMIN HCL [Metformin HCl] 500 mg PO BID 10/04/16 [History] Meloxicam [Mobic] 7.5 mg PO DAILY 07/13/17 [History] Bisacodyl [Dulcolax] 5 mg PO DAILY PRN #10 tablet. 07/24/17 [Rx] Lisinopril [Prinivil] 20 mg PO DAILY #30 tablet 07/24/17 [Rx] Ondansetron Odt [Zofran Odt] 4 mg PO Q8HR PRN #9 tab 07/24/17 [Rx] Simethicone 40 mg/0.6 ml Drops [Mylicon Drops] 40 mg PO PCHS PRN #30 ml [Rx] Follow up Appointment(s)/Referral(s): Malachi Larios MD [STAFF PHYSICIAN] - 08/02/17 2:00 pm Alvin Guajardo MD [STAFF PHYSICIAN] - 1 Week Patient Instructions/Handouts: Nutrition after Bariatric Surgery (DC), Bowel Management After Bariatric Surgery (DC), Laparoscopic Sleeve Gastrectomy (DC) Activity/Diet/Wound Care/Special Instructions: The patient was adamant about not receiving any narcotics for pain stated that she had no pain. Patient was given a prescription for plain Tylenol 320 mg per 10 mL to use every 4 hours when necessary pain patient stated she had no money was given coupons for indigent drugs per behavioral health case manager Discharge Disposition: HOME SELF-CARE
--- NOTE | 2017-07-24 13:13 | P.PN ---
Subjective Progress Note Date: 07/24/17 51-year-old seen and examined sitting up in bed. Patient's postop day 1 laparoscopic sleeve gastrectomy done on the 23 of July for morbid obesity. Patient reports a nausea sensation with decreased oral intake. No emesis Patient is adamant about not receiving pain medication. Surgical dressing sites dry. Objective - Vital Signs Vital signs: Vital Signs Temp 98.1 F 07/24/17 07:00 Pulse 64 07/24/17 12:49 Resp 18 07/24/17 01:19 BP 168/87 07/24/17 07:00 Pulse Ox 97 07/24/17 08:48 Intake & Output 07/23/17 07/24/17 07/24/17 18:59 06:59 18:59 Intake Total 1550 2400 Output Total 210 Balance 1340 2400 Weight 120.5 kg Intake: IV 1550 Intake, IV Titration 2400 Amount 0.9% NaCl with KCl 20 Meq 2400 /l 1,000 ml @ 150 mls/hr IV .Q6H40M ON LICENSE OF [facility] Rx#: [id number] Output: Urine 200 Estimated Blood Loss 10 Other: # Voids 3 - Exam Exam Abdomen soft surgical tenderness appropriate. Surgical dressings dry. Bowel tones present reports a nausea sensation no active emesis poor oral intake - Labs CBC & Chem 7: 07/24/17 06:24 07/24/17 06:24 Labs: Abnormal Lab Results - Last 24 Hours (Table) 07/23/17 07/23/17 07/24/17 Range/Units 17:11 19:48 06:24 WBC 16.3 H (3.8-10.6) k/uL Neutrophils # 13.2 H (1.3-7.7) k/uL BUN (7-17) mg/dL Creatinine (0.52-1.04) mg/dL POC Glucose (mg/dL) 152 H 161 H (75-99) mg/dL 07/24/17 07/24/17 07/24/17 Range/Units 06:24 06:42 11:20 WBC (3.8-10.6) k/uL Neutrophils # (1.3-7.7) k/uL BUN 19 H (7-17) mg/dL Creatinine 0.50 L (0.52-1.04) mg/dL POC Glucose (mg/dL) 123 H 131 H (75-99) mg/dL Assessment and Plan Assessment: Impression Morbid obesity BMI 48.6 History of osteoarthritis Postop July 23 laparoscopic sleeve gastrectomy Type 2 diabetes on metformin Hypertension Plan Continue bariatric teaching Increase activity Hold discharge for today Home meds as appropriate Will follow The above impression and plan of care have been discussed and directed by signing physician. Tahira Chase nurse practitioner acting as scribe for signing physician.
[2017-07-24 13:46] VITALS: BMI 48.6
[2017-07-24] MEDS: 1: MVI, ADULT NO.4 WITH VIT K 10 ML, THIAMINE 100 MG, FOLIC ACID 1 MG, POTASSIUM CHLORID IV SCH ×6 (14:21)
[2017-07-24] MEDS: LISINOPRIL 20 MG TAB PO SCH (16:44)
[2017-07-24 17:01] LABS: Glucose,Whole Blood 119 mg/dL (75-99)
[2017-07-24 20:59] LABS: Glucose,Whole Blood 130 mg/dL (75-99)
[2017-07-25] MEDS: HYOSCYAMINE ORAL DROPS 1.875 MG/15 ML BOTTLE PO PRN (01:30)
[2017-07-25] MEDS: KETOROLAC 30 MG/ML 1 ML VIAL IVP SCH ×2 (01:31→06:29)
[2017-07-25] MEDS: SIMETHICONE 40 MG/0.6 ML DROPS 2,000 MG/30 ML BOTTLE PO PRN (01:31)
[2017-07-25] MEDS: 1: MVI, ADULT NO.4 WITH VIT K 10 ML, THIAMINE 100 MG, FOLIC ACID 1 MG, POTASSIUM CHLORID IV SCH ×6 (04:26)
[2017-07-25] MEDS: LACTATED RINGERS 1,000 ML IV SCH (06:21)
[2017-07-25 06:28] LABS: Glucose,Whole Blood 117 mg/dL (75-99)
[2017-07-25 07:04] VITALS: BP 162/82; RESP 15; TEMP 98
[2017-07-25] MEDS: ALBUTEROL NEBULIZED 2.5 MG/3 ML INHALATION SCH ×2 (07:24→11:05)
[2017-07-25] MEDS: LISINOPRIL 20 MG TAB PO SCH ×2 (08:41→08:45)
[2017-07-25] MEDS: PANTOPRAZOLE 40 MG/10 ML VIAL IV SCH (08:41)
[2017-07-25] MEDS: ENOXAPARIN 40 MG/0.4 ML SYRINGE SQ SCH (08:41)
[2017-07-25] MEDS: INSULIN ASPART 100 UNIT/ML 1 ML 10 ML VIAL SQ SCH (10:46)
[2017-07-25 11:17] VITALS: PULSE 66
--- NOTE | 2017-07-25 13:03 | PN ---
PROGRESS NOTE DATE OF SERVICE: 07/24/2017 SUBJECTIVE: This is a 51-year-old white female with morbid obesity, status post gastric sleeve. She has had hypertension acceleration. Postop, started on lisinopril 20 mg a day for this, which is much better than yesterday. Her gas pressure is much better in her belly. No chest pain. No shortness of breath. No lightheadedness or syncope. ASSESSMENT: 1. Status post gastric sleeve. 2. Hypertension acceleration. Start her home lisinopril 20 mg daily. Follow up on blood pressure closely. Ambulate. MMODL / IJN: [id number] /
== END 2017-07-25 12:38 | disposition home or self-care (01) | DRG 621 ==
LOC: 2ORMAIN 07-23 06:04 → 3SUR 07-23 10:26
PROVIDERS: ADMIT Surgery; ATTEND Surgery
PROC: 0DB64Z3 Excision of Stomach, Percutaneous Endoscopic Approach, Vertical (ICD-10-PCS; principal; 2017-07-23 08:00)
DX: E66.01 Morbid (severe) obesity due to excess calories (principal); E11.9 Type 2 diabetes mellitus without complications; F17.200 Nicotine dependence, unspecified, uncomplicated; I10 Essential (primary) hypertension; J45.909 Unspecified asthma, uncomplicated; Z68.43 Body mass index [BMI] 50.0-59.9, adult; Z79.84 Long term (current) use of oral hypoglycemic drugs; Z79.899 Other long term (current) drug therapy; Z83.3 Family history of diabetes mellitus; Z85.41 Personal history of malignant neoplasm of cervix uteri; Z91.040 Latex allergy status
CPT/HCPCS: 74240; 80051; 81025; 82310; 82565; 83036; 83735; 84100; 84520; 85025; 86850; 86900; 86901; 88307; 94640; 94760

== ENCOUNTER → 2017-07-17 | Outpatient (CLI) | payer OTHER ==
[2017-07-17 11:19] LABS: HCT 47.9 % (34.0-46.0); HGB 15.5 gm/dL (11.4-16.0); MCH 27.2 pg (25.0-35.0); MCHC 32.3 g/dL (31.0-37.0); MCV 84.3 fL (80.0-100.0); Mean Platelet Volume 9.2; Platelet Count 277 k/uL (150-450); RBC 5.68 m/uL (3.80-5.40); WBC 10.3 k/uL (3.8-10.6)
== END | disposition home or self-care (01) ==
LOC: LABPAT 10:44
PROVIDERS: ATTEND Anesthesiology
DX: Z01.812 Encounter for preprocedural laboratory examination (principal)
CPT/HCPCS: 36415; 85027

== ENCOUNTER → 2017-07-19 | Outpatient (CLI) | payer OTHER ==
[2017-07-19 13:27] LABS: ALT 20 U/L (9-52); AST 22 U/L (14-36); Albumin 4.2 g/dL (3.5-5.0); Alkaline Phosphatase 93 U/L (38-126); Anion Gap 10 mmol/L; Blood Urea Nitrogen 17 mg/dL (7-17); Calcium 9.7 mg/dL (8.4-10.2); Carbon Dioxide 27 mmol/L (22-30); Chloride 104 mmol/L (98-107); Glucose 123 mg/dL (74-99); Potassium 4.6 mmol/L (3.5-5.1); Sodium 141 mmol/L (137-145); Total Bilirubin 0.6 mg/dL (0.2-1.3); Total Protein 7.3 g/dL (6.3-8.2)
== END | disposition home or self-care (01) ==
LOC: LABPAT 12:39
PROVIDERS: ATTEND Surgery
DX: Z01.812 Encounter for preprocedural laboratory examination (principal); E11.9 Type 2 diabetes mellitus without complications
CPT/HCPCS: 36415; 80053

== ENCOUNTER → 2017-07-30 | Outpatient (CLI) | payer OTHER ==
[2017-07-30 14:31] VITALS: BP 150/78; PULSE 88; RESP 16; TEMP 98.7; BMI 43.3
--- NOTE | 2017-07-30 16:44 | P.HPBAR ---
Bariatric H&P - History & Physicial H&P Date: 07/30/17 History & Physicial: Visit/CC: post sleeve Patient initial contact: Initial weight: 136.305 kg Initial weight in pounds: 300.50 Height: 5 ft 4.25 in Initial BMI: 51.1 Last weight: Current weight: 115.383 kg Current weight in pounds: 254.38 Current BMI: 43.3 [place] body weight (based on NIH guidelines): 54.998 kg Excess body weight loss: 25.7% The patient is a 51 year-old F who presents for Bariatric Assessment. Patient presents today for postoperative sleeve gastrectomy fall. 2 quite well. She is on minimal complaints of pain. Past Medical History Past Medical History: Asthma, Cancer, Diabetes Mellitus, Osteoarthritis (OA) Additional Past Medical History / Comment(s): cervical cancer 1993 History of Any Multi-Drug Resistant Organisms: None Reported Past Surgical History: Section, Cholecystectomy, Orthopedic Surgery Additional Past Surgical History / Comment(s): Right arm surgery. Past Anesthesia/Blood Transfusion Reactions: No Reported Reaction Smoking Status: Current every day smoker - Past Family History Father Family Medical History: Cancer, Diabetes Mellitus Additional Family Medical History / Comment(s): prostate Surgical - Exam Vital Signs Temp Pulse Resp BP 98.7 F 88 16 150/78 07/30/17 14:28 07/30/17 14:28 07/30/17 14:28 07/30/17 14:28 - General well developed, no distress - Eyes PERRL - ENT normal pinna - Neck no masses - Respiratory normal expansion - Cardiovascular Rhythm: regular - Abdomen Abdomen: soft, non tender Bariatric Assessment & Plan Plan: Patient's postoperative sleeve gastrectomy. She is doing well. She'll follow- up in 2 weeks. Bariatric Checklist Checklist: Plan: Checklist: EGD: 1. Hiatal hernia: 2. H. Pylori: HgbA1c: Vitamin D: Smoking: Current every day smoker Primary care physician referral: Malachi tyson Psychiatry clearance: Cardiology clearance: Sleep study: Diet journal: VTE risk score: VTE risk level: Rehab needs at discharge:
== END | disposition home or self-care (01) ==
LOC: BARWHC3 14:08
PROVIDERS: ATTEND Surgery
DX: Z48.815 Encounter for surgical aftercare following surgery on the digestive system (principal); E66.01 Morbid (severe) obesity due to excess calories; F17.200 Nicotine dependence, unspecified, uncomplicated; Z71.3 Dietary counseling and surveillance; Z68.41 Body mass index [BMI] 40.0-44.9, adult
CPT/HCPCS: 97803; G0463; 99211

== ENCOUNTER → 2017-09-03 | Outpatient (CLI) | payer OTHER ==
[2017-09-03 13:18] VITALS: PULSE 85; TEMP 98
[2017-09-03 13:34] VITALS: BP 136/85; RESP 16; BMI 40.8
--- NOTE | 2017-09-03 15:54 | P.HPBAR ---
Bariatric H&P - History & Physicial H&P Date: 09/03/17 History & Physicial: Visit/CC: sleeve follow-up Patient initial contact: Initial weight: 136.305 kg Initial weight in pounds: 300.50 Height: 5 ft 4.25 in Initial BMI: 51.1 Last weight: Current weight: 108.862 kg Current weight in pounds: 240.00 Current BMI: 40.8 [place] body weight (based on NIH guidelines): 54.998 kg Excess body weight loss: 33.7% The patient is a 51 year-old F who presents for Bariatric Assessment. The patient presents today for sleeve gastrectomy follow-up. She's loss (60 pounds. She's had some minimal GERD symptoms. Past Medical History Past Medical History: Asthma, Cancer, Diabetes Mellitus, Osteoarthritis (OA) Additional Past Medical History / Comment(s): cervical cancer 1993 History of Any Multi-Drug Resistant Organisms: None Reported Past Surgical History: Section, Cholecystectomy, Orthopedic Surgery Additional Past Surgical History / Comment(s): Right arm surgery. Past Anesthesia/Blood Transfusion Reactions: No Reported Reaction Past Psychological History: No Psychological Hx Reported Smoking Status: Current every day smoker Past Alcohol Use History: None Reported Additional Past Alcohol Use History / Comment(s): down to 3 cigarettes per day, has been smoking since 15 yrs old, 2PPD Past Drug Use History: None Reported - Past Family History Father Family Medical History: Cancer, Diabetes Mellitus Additional Family Medical History / Comment(s): prostate Surgical - Exam Vital Signs Temp Pulse Resp BP 98 F 85 16 136/85 09/03/17 13:17 09/03/17 13:17 09/03/17 13:17 09/03/17 13:17 - General well developed, no distress - Abdomen Abdomen: soft, non tender Bariatric Assessment & Plan Plan: Status post sleeve gastrectomy. Patient is doing quite well. Her GERD symptoms are minimal be observed. Bariatric Checklist Checklist: Plan: Checklist: EGD: 1. Hiatal hernia: 2. H. Pylori: HgbA1c: Vitamin D: Smoking: Current every day smoker Primary care physician referral: Malachi tyson Psychiatry clearance: Cardiology clearance: Sleep study: Diet journal: VTE risk score: VTE risk level: Rehab needs at discharge:
== END | disposition home or self-care (01) ==
LOC: BARWHC3 12:56
PROVIDERS: ATTEND Surgery
DX: Z09 Encounter for follow-up examination after completed treatment for conditions other than malignant neoplasm (principal); K21.9 Gastro-esophageal reflux disease without esophagitis; F17.210 Nicotine dependence, cigarettes, uncomplicated; J45.909 Unspecified asthma, uncomplicated; E11.9 Type 2 diabetes mellitus without complications; M19.90 Unspecified osteoarthritis, unspecified site; Z90.49 Acquired absence of other specified parts of digestive tract; Z98.890 Other specified postprocedural states; Z98.84 Bariatric surgery status
CPT/HCPCS: 97803; G0463; 99211